=== PATIENT | female | born 1930 | race Caucasian/White ===

== ENCOUNTER → 2017-10-25 17:40 | Observation (INO) ==
[2017-10-24 14:33] VITALS: BMI 22.5
[2017-10-24] MEDS: PANTOPRAZOLE 40 MG INJECTION IVP SCH ×2 (15:12→22:14)
[2017-10-24] MEDS: 1/2 NS with KCL 20mEq 1,000 ML IV SCH (16:54)
[2017-10-24] MEDS: POM GABAPENTIN 300 MG CAPSULE PO SCH (20:53)
[2017-10-25] MEDS: ACETAMINOPHEN 325 MG TABLET PO PRN ×2 (02:07→09:02)
[2017-10-25] MEDS: POM GABAPENTIN 300 MG CAPSULE PO SCH (09:02)
[2017-10-25] MEDS: PANTOPRAZOLE 40 MG INJECTION IVP SCH (09:03)
[2017-10-25] MEDS: 1/2 NS with KCL 20mEq 1,000 ML IV SCH (14:33)
[2017-10-25 15:45] VITALS: BP 123/63; PULSE 90; RESP 18; TEMP 97.2; O2SAT 93
--- NOTE | 2017-10-25 17:00 | Internal Med History&Physical ---
Internal Medicine HPI Chief complaint: weakness. New-onset anemia History of present illness: Marybel More is a very pleasant 86-year-old white female patient who is well- known to me from my office practice. She was recently seen in the ER and noted to have a hemoglobin of 7.5. I saw her in the office the day prior to admission and a we cresencio her lab once again and noted a hemoglobin of 6.9. She was short of breath and extremely fatigued and weak. She could not get out of a chair without help. When I received her lab back I ask her family bring her directly to the hospital as a direct admit for transfusion and consider endoscopy. Upon arrival her hemoglobin was now down to 6.6. She denies chest pain but again had extreme fatigue and weakness with inability to ambulate without assistance. Review of Systems - Constitutional Constitutional: Present: fatigue, lethargy, malaise, weakness - Cardiovascular Cardiovascular: Present: dyspnea on exertion. Absent: chest pain, palpitations Rhythm: Present: abnormal rhythm - Respiratory Respiratory: Present: dyspnea, dyspnea on exertion. Absent: cough, hemoptysis, wheezing - Gastrointestinal Gastrointestinal: Absent: abdominal pain, coffee ground emesis, hematemesis, hematochezia, melena, nausea - Genitourinary Menstruation: post menopausal - Musculoskeletal Musculoskeletal: Present: muscle weakness - Neurological Neurological: Present: abnormal gait, weakness - Psychiatric Psychiatric: Present: depression. Absent: anxiety PFSH Patient Stated Medical History Hearing Loss Yes: bilateral hearing aids Hypertension Yes Bronchitis Yes: currently Gastroesophageal Reflux Yes Disease Anemia Yes: currently Depression Yes Medical History Updates: A-fib. HTN. Depression. Anxiety. GERD. Atrial fibrillation requiring anticoagulation therapy - Social History Smoking status: Former smoker Substance use type: does not use Alcohol intake: former Housing: house Household members: none service: No Current occupational status: retired Medications Home Medications Medication Instructions Recorded Confirmed Type Gabapentin 300 mg PO BID #0 06/18/15 10/24/17 History Multivitamin [Multivitamins] 1 cap PO DAILY 02/12/17 10/24/17 History Sucralfate [Carafate] 1 gm PO HS 02/12/17 10/24/17 History LORazepam [Ativan] 0.5 mg PO PRN 10/21/17 10/24/17 History Mirtazapine [Remeron] 15 mg PO HS 10/21/17 10/24/17 History Omeprazole 20 mg PO DAILY 10/21/17 10/24/17 History Allergies Allergy/AdvReac Type Severity Reaction Status Date / Time levofloxacin Allergy Unknown RASH Verified 10/24/17 14:56 warfarin Allergy Unknown RASH Verified 10/24/17 14:56 magnesium AdvReac Intermediate Diarrhea Verified 10/24/17 14:56 Exam Vital signs: Temperature 97.2 F 10/25/17 15:39 Pulse Rate 90 10/25/17 15:39 Respiratory Rate 18 10/25/17 15:39 Blood Pressure 123/63 10/25/17 15:39 Pulse Oximetry 93 10/25/17 15:39 - Constitutional moderate distress, cooperative - Routine HEENT Exam Head: Present: normocephalic, atraumatic Eye: Present: EOMI. Absent: conjunctival icterus, scleral injection, conjunctivae pink ENT: Present: mucous membranes moist, oropharynx clear, nares patent Nose: moist mucous membranes - Routine Neck Exam Present: supple. Absent: JVD, carotid bruit - Routine Chest/Breast/Axilla Exam Chest wall: Absent: tenderness Axillae: Absent: lymphadenopathy - Routine Respiratory Exam Present: dyspnea, decreased breath sounds. Absent: accessory muscle use - Routine Cardiovascular Exam Present: murmur, irregular rhythm. Absent: RRR, S3, S4 - Routine Abdominal Exam Present: soft, tenderness (gastric). Absent: distended, rebound, guarding, rigid - Routine Extremities Exam Present: pallor. Absent: cyanosis, clubbing, edema - Routine Skin Exam Present: intact, dry, pallor. Absent: cyanosis, erythema, mottling, petechiae, urticaria, jaundice - Routine Neurological Exam Present: oriented X3, CN II-XII intact, abnormal gait. Absent: alert - Routine Psychiatric Exam Present: depressed, anxious. Absent: normal affect Internal Medicine Results - Labs CBC & Chem 7: 10/25/17 02:45 10/25/17 02:45 Labs: Short CBC 10/25/17 Range/Units 02:45 Hgb 9.7 L D (12-16) GM/DL BMP 10/25/17 02:45 Sodium 143 Potassium 3.9 D Chloride 104 Carbon Dioxide 29 BUN 11.0 Creatinine 0.8 Glucose 90 Calcium 8.6 Liver Function 10/25/17 Range/Units 02:45 Albumin 3.1 L (3.5-5.0) g/dL Assessment and Plan - Assessment and Plan (1) Symptomatic anemia Problem details: Hemoglobin 6.6 Current visit: Yes Status: Acute (2) Adequate anticoagulation on anticoagulant therapy Current visit: Yes Status: Acute - Assessment and Plan I will transfuse 2 units packed red blood cells and recheck her hemoglobin. If she is stable I'll discharge her to home with outpatient follow-up and probable endoscopy
--- NOTE | 2017-10-25 17:11 | Discharge Summary ---
Discharge Information Date of admission: 10/24/17 14:09 Anticipated date of discharge: 10/25/17 Attending Physician: Ervin Malcolm DO Primary care physician: Ervin Malcolm DO - Discharge Diagnosis (1) Symptomatic anemia Status: Acute (2) Adequate anticoagulation on anticoagulant therapy Status: Acute - Laboratory Labs: 10/25/17 02:45 10/25/17 02:45 History of Present Illness HPI: Marybel More is a very pleasant 86-year-old white female patient who is well- known to me from my office practice. She was recently seen in the ER and noted to have a hemoglobin of 7.5. I saw her in the office the day prior to admission and a we cresencio her lab once again and noted a hemoglobin of 6.9. She was short of breath and extremely fatigued and weak. She could not get out of a chair without help. When I received her lab back I ask her family bring her directly to the hospital as a direct admit for transfusion and consider endoscopy. Upon arrival her hemoglobin was now down to 6.6. She denies chest pain but again had extreme fatigue and weakness with inability to ambulate without assistance. Hospital Course This is a general summary of the patient's hospital course. For more details refer to the complete medical record. Time spent with patient: greater than 35 minutes Discharge Plan - Med Rec/Dispo Prescriptions: Continue Sucralfate [Carafate] 1 gm PO HS Multivitamin [Multivitamins] 1 cap PO DAILY Mirtazapine [Remeron] 15 mg PO HS Gabapentin 300 mg PO BID #0 Omeprazole 20 mg PO DAILY LORazepam [Ativan] 0.5 mg PO PRN - Disposition 01 Discharged Home, Self-Care - Dismissal Complete Discharge Instructions are:: Complete
[~2017-10-25 17:40] MED LIST: BISACODYL 10 MG SUPPOSITORY RECTALLY PRN; CYANOCOBALAMIN (B-12) 500mcg TABLET PO SCH; FALL RISK - PHARMACY CONSULT XX ONE; FUROSEMIDE 20 MG/2 ML INJECTION IVP ONE; MAG-AL + SIM ORAL LIQUID 30ml PO PRN; MIRTAZAPINE 15 MG PO SCH; NS FLUSH BAG 500ml IV PRN
== END | disposition home or self-care (01) ==
LOC: MED
PROVIDERS: ADMIT Internal Medicine; ATTEND Internal Medicine